=== PATIENT | female | born 1960 | race Caucasian/White ===

== ENCOUNTER 2022-01-31 03:46 | Emergency (ER) | payer BC, OTHER ==
[~2022-01-31] VITALS: Ht 162.6 cm; Wt 59.1 kg
[2022-01-31] MEDS ORDERED: IOHEXOL 300 MG/ML 100ML BOTTLE IJ ONE (04:09)
[2022-01-31] MEDS ORDERED: LIDOCAINE HCL 2 % INJ 2ML MPF NEB ONE (04:15)
[2022-01-31] MEDS ORDERED: ROCURONIUM 10MG/ML 10ML VIAL IV ONE ×3 (04:30→06:47)
[2022-01-31] MEDS ORDERED: ETOMIDATE (2MG/ML) 20ML VIAL IV ONE (04:30)
[2022-01-31 04:35] LABS: Basophils # (auto) 0 10 ^3/uL (0-0.2); Basophils % (auto) 0.4 % (0.0-2.0); Eosinophils # (auto) 0.1 10 ^3/uL (0-0.8); Eosinophils % (auto) 0.7 % (0.0-7.0); Hematocrit 39.8 % (36.0-46.0); Hemoglobin 12.9 g/dL (12.2-16.2); Lymphocytes # (auto) 3.7 10 ^3/uL (0.4-5.4); Lymphocytes % (auto) 48.4 % (10.0-50.0); Mean Corpuscular Hemoglobin 31.9 pg (28.0-32.0); Mean Corpuscular Hgb Conc. 32.5 g/dL (32.0-36.0); Mean Corpuscular Volume 98.1 fL (80.0-100.0); Monocytes # (auto) 0.5 10 ^3/uL (0-1.3); Monocytes % (auto) 6.2 % (0.0-12.0); Neutrophils # (auto) 3.4 10 ^3/uL (1.6-8.6); Neutrophils % (auto) 44.3 % (37.0-80.0); Red Blood Cells 4.06 10^6/uL (4.0-5.20); Red Cell Distribution Width 14.5 % (11.8-14.3); White Blood Cell 7.6 10^3/uL (4.4-10.8)
[2022-01-31] MEDS ORDERED: MIDAZOLAM HCL 2MG/2ML 2ml VIAL (1mg/ml) IV ONE ×2 (04:45→09:15)
[2022-01-31] MEDS ORDERED: PROPOFOL 100 ML IV SCH (04:45)
[2022-01-31 04:55] LABS: Albumin 3.6 g/dL (3.4-5.0); BUN/Creatinine Ratio 20.8; Calcium 9.1 mg/dL (8.5-10.1); Potassium 3.4 mmol/L (3.5-5.1)
[2022-01-31 04:58] LABS: Bilirubin, Total 0.2 mg/dL (0.2-1.0); Lactic Acid w/Reflex 4.5 mmol/L (0.4-2.0); Total Protein 6.5 g/dL (6.4-8.2)
[2022-01-31 05:34] LABS: Urine Bacteria NONE SEEN /hpf (None Seen); Urine Blood Negative /uL (Negative); Urine Specific Gravity 1.036 (1.001-1.035); Urine WBC <1 /hpf (0 - 5)
[2022-01-31 05:50] VITALS: BP 141/62
[2022-01-31] MEDS ORDERED: AMPICILLIN & SULBACTAM SODIUM 3 GM in SODIUM CHL 0.9% 100 ML IV SCH (06:30)
[2022-01-31 08:00] VITALS: BP 123/73
[2022-01-31] MEDS ORDERED: diphenhdrAMINE HCL 50 MG/1 ML VL IV ONE (09:00)
[2022-01-31] MEDS ORDERED: FAMOTIDINE (10MG/ML) 2ML VL IV ONE (09:00)
[2022-01-31] MEDS ORDERED: DexAMETHasone SOD PHOS 10MG/1ML VIAL INJ IV ONE (09:00)
[2022-01-31] MEDS ORDERED: MIDAZOLAM DRIP 50 mg/50mL 50 ML IV ONE (09:40)
[2022-01-31] MEDS ORDERED: MIDAZOLAM DRIP 50 mg/50mL 50 ML IV SCH (09:45)
[2022-01-31 10:00] VITALS: BP 137/69
== END 2022-01-31 10:31 | disposition short-term general hospital (02) ==
LOC: ER 03:46 → EDBD 03:46 → ER 10:31
DX: R06.03 Acute respiratory distress (principal); K12.2 Cellulitis and abscess of mouth; K04.7 Periapical abscess without sinus; Z20.822 Contact with and (suspected) exposure to COVID-19
CPT/HCPCS: 31500; 36415; 36600; 70450; 70487; 71045; 80053; 81001; 82805; 83605; 84484; 85025; 87426; 94640; 96365; 96375; 99291; J1100; J1200; J2250; J2704; J3490; Q9967; 94002; 96374